=== PATIENT | male | born 1985 ===

== ENCOUNTER → 2018-05-07 | Outpatient (CLI) | payer OTHER ==
[2018-05-07 18:04] LABS: CHOL/HDL RATIO 7.6; Cholesterol 244 mg/dL (50-200); HDL Cholesterol 32 mg/dL (>39); LDL/HDL RATIO Unable to Calculate; Low Density Lipoprotein Chol Unable to Calculate mg/dL (0-110); Triglycerides 477 mg/dL (30-140); Very Low Density Lipoprot Chol Unable to Calculate mg/dL (6-28)
== END | disposition home or self-care (01) ==
LOC: LAB SHORT 16:55 → LAB 16:55
PROVIDERS: Physician Assistant
DX: Z00.00 Encounter for general adult medical examination without abnormal findings (principal)
CPT/HCPCS: 80061; 83036